=== PATIENT | female | born 1990 | race African-American/Black ===

== ENCOUNTER 2020-07-04 15:41 | Emergency (ER) | payer MEDICAID ==
[~2020-07-04] VITALS: Ht 162.6 cm; Wt 67.3 kg
[~2020-07-04 15:41] MED LIST: KETO10TA PO; ONDA4TAB13 SL
--- NOTE | 2020-07-04 17:14 | NUR ---
[employer] ATTEND[employer]: PT AMBULATORY WITH STEADY GAIT TO ROOM AT THIS TIME.
--- NOTE | 2020-07-04 18:54 | NUR ---
REPORT RECIEVED FROM SAM CH. SAFETY MEASURES IN PLACE, PATIENT ON ALL MONITORS. PATIENT RESTING IN BED WITH GLASS OF WATER
--- NOTE | 2020-07-04 18:59 | NUR ---
Provided bedside report to SAM Boo. All questions answered. SAM Boo to assume care of pt at this time.
[2020-07-04] MEDS ORDERED: BUPIVACAINE 0.25% ONE ×2 (19:10→19:13)
[2020-07-04] MEDS ORDERED: LIDOCAINE-MPF 1%, 5ML ONE (19:10)
[2020-07-04] MEDS ORDERED: LIDOCAINE 1%-EPI 1:100K, 20ML ONE ×2 (19:10→19:13)
[2020-07-04] MEDS ORDERED: OXYcodone/APAP 5/325MG TABLET PO ONE (19:30)
[2020-07-04] MEDS ORDERED: LIDOCAINE 1%-EPI 1:100K, 20ML SQ ONE (19:30)
[2020-07-04] MEDS ORDERED: BUPIVACAINE/PF-EPI 0.25% 1:200K SQ ONE (19:30)
[2020-07-04] MEDS ORDERED: OXYcodone/APAP 5/325MG TABLET ONE (19:38)
[2020-07-04 19:41] VITALS: BP 110/76
== END 2020-07-04 20:19 | disposition home or self-care (01) ==
LOC: ED 19:30
DX: K02.9 Dental caries, unspecified (principal); F17.200 Nicotine dependence, unspecified, uncomplicated; R00.0 Tachycardia, unspecified
CPT/HCPCS: 64400; 93005; 99284